=== PATIENT | female | born 1945 | race Two or more races ===

== ENCOUNTER 2017-09-10 11:06 | Outpatient (CLI) | payer OTHER | END 2017-09-10 15:00 | disposition home or self-care (01) | LOC: MAMO-SONO 11:06 | DX: Z12.31 Encounter for screening mammogram for malignant neoplasm of breast (principal); Z87.898 Personal history of other specified conditions; N64.4 Mastodynia ==

== ENCOUNTER 2017-11-05 14:17 | Inpatient (IN) | payer OTHER ==
[~2017-11-05] VITALS: Ht 152.4 cm; Wt 90.3 kg
[2017-11-07] MEDS ORDERED: VITAMIN D2400 UNIT PO (12:39)
[2017-11-07] MEDS ORDERED: NON-DROWSY ALLE10 MG PO (12:40)
[2017-11-07] MEDS ORDERED: ACID CONTROLLER20 MG PO (12:43)
[2017-11-07] MEDS ORDERED: HYDROCHLOROTH12.5 M1 PO (12:44)
[2017-11-16] MEDS ORDERED: XARELTO10 MG PO (07:24)
[2017-11-16] MEDS ORDERED: PERCOCET 5-3251 EACH PO (07:24)
[2017-11-16] MEDS ORDERED: CIPRO500 MG PO (07:24)
== END 2017-11-16 14:35 | DRG 470 ==
LOC: SURH 11-13 05:45 → O/R 11-13 05:45 → SURG 11-13 08:00 → SURH 11-13 10:45
PROVIDERS: Orthopaedic Surgery
PROC: 0MTL0ZZ Resection of Right Hip Bursa and Ligament, Open Approach (ICD-10-PCS; 2017-11-13)
PROC: 0SR902Z Replacement of Right Hip Joint with Metal on Polyethylene Synthetic Substitute, Open Approach (ICD-10-PCS; principal; 2017-11-13 07:00)
PROC: 30233N1 Transfusion of Nonautologous Red Blood Cells into Peripheral Vein, Percutaneous Approach (ICD-10-PCS; 2017-11-14)
DX: M16.11 Unilateral primary osteoarthritis, right hip (principal); D62 Acute posthemorrhagic anemia; M89.751 Major osseous defect, right pelvic region and thigh; M70.61 Trochanteric bursitis, right hip; E66.8 Other obesity; M81.0 Age-related osteoporosis without current pathological fracture; I10 Essential (primary) hypertension

== ENCOUNTER 2017-11-07 07:59 | Outpatient (CLI) | payer OTHER ==
[2017-11-07] MEDS ORDERED: VITAMIN D2400 UNIT PO (12:39)
[2017-11-07] MEDS ORDERED: NON-DROWSY ALLE10 MG PO (12:40)
[2017-11-07] MEDS ORDERED: ACID CONTROLLER20 MG PO (12:43)
[2017-11-07] MEDS ORDERED: HYDROCHLOROTH12.5 M1 PO (12:44)
== END 2017-11-07 08:01 | disposition home or self-care (01) ==
LOC: RAD 07:59
DX: M16.11 Unilateral primary osteoarthritis, right hip (principal)